=== PATIENT | male | born 1990 | race Two or more races ===

== ENCOUNTER 2016-08-29 18:17 | Emergency (ER) | payer MEDICAID ==
[2016-08-29] MEDS ORDERED: AMOXICILLIN TRIHYDRATE 250 MG CAPSULE ONE (19:37)
[2016-08-29] MEDS ORDERED: HYDROCODONE/ACETAMINOPHEN 5/325MG TABLET ONE (19:37)
[2016-08-29] MEDS ORDERED: IBUPROFEN 800 MG TABLET ONE (19:37)
[2016-08-29] MEDS ORDERED: DEXAMETHASONE SOD PHOS 10 MG/1 ML VIAL ONE (19:38)
== END 2016-08-29 20:23 | disposition home or self-care (01) ==
LOC: ED 18:17
DX: K04.7 Periapical abscess without sinus (principal); J45.909 Unspecified asthma, uncomplicated
CPT/HCPCS: 99283 ×2; A9270 ×3; J1100